=== PATIENT | female | born 1990 | race African-American/Black ===

== ENCOUNTER 2022-06-11 08:13 | Emergency (ER) | payer MEDICAID, OTHER ==
[~2022-06-11] VITALS: Ht 167.6 cm; Wt 100.0 kg
[2022-06-11 08:19] VITALS: BP 140/83
[2022-06-11] MEDS ORDERED: ACETAMINOPHEN 325MG TABLET PO ONE (10:00)
[2022-06-11 10:31] LABS: CLARITY URINE CLOUDY (CLEAR); COLOR URINE YELLOW (YELLOW); KETONES URINE TRACE (NEGATIVE); LEUKOCYTE ESTERASE URINE 1+ (NEGATIVE); NITRITE URINE NEGATIVE (NEGATIVE); OCCULT BLOOD URINE TRACE (NEGATIVE); PH URINE 5.5 (4.5-8.0); PROTEIN URINE TRACE (NEGATIVE); SPECIFIC GRAVITY URINE 1.033 (1.005-1.030); UROBILINOGEN URINE 0.2 E.U./dL (0.2-1.0)
[2022-06-11] MEDS ORDERED: CIPR-263 MT (11:09)
== END 2022-06-11 11:31 | disposition home or self-care (01) ==
LOC: ER 08:13
DX: N39.0 Urinary tract infection, site not specified (principal); N12 Tubulo-interstitial nephritis, not specified as acute or chronic
CPT/HCPCS: 81003; 81025; 99283

== ENCOUNTER 2022-10-17 09:23 | Emergency (ER) | payer MEDICAID, OTHER ==
[~2022-10-17] VITALS: Ht 160 cm; Wt 145.0 kg
[~2022-10-17 09:23] MED LIST: CIPR-263 MT
[2022-10-17 09:34] VITALS: O2SAT 99
[2022-10-17] MEDS ORDERED: IBUPROFEN 600MG TABLET PO ONE (09:45)
[2022-10-17] MEDS ORDERED: IBUP-2029 MT (11:52)
[2022-10-17] MEDS ORDERED: HYDROCODONE/ACETAMINOPHEN 5/325MG TABLET PO ONE (12:00)
[2022-10-17 13:52] VITALS: BP 136/92; PULSE 84; RESP 16; TEMP 98.5
== END 2022-10-17 13:53 | disposition home or self-care (01) ==
LOC: ER 09:23
DX: S82.401A Unspecified fracture of shaft of right fibula, initial encounter for closed fracture (principal); W01.0XXA Fall on same level from slipping, tripping and stumbling without subsequent striking against object, initial encounter; Y93.89 Activity, other specified; Y92.89 Other specified places as the place of occurrence of the external cause; Y99.8 Other external cause status
CPT/HCPCS: 73600; 73620; 29515; 99284; Z7610

== ENCOUNTER 2022-12-03 09:40 | Emergency (ER) | payer MEDICAID, OTHER ==
[~2022-12-03] VITALS: Ht 160 cm; Wt 143.0 kg
[~2022-12-03 09:40] MED LIST changes: +IBUP-2029 MT
[2022-12-03 09:46] VITALS: TEMP 98.7; O2SAT 96
[2022-12-03 11:45] VITALS: BP 134/90; PULSE 114; RESP 16
[2022-12-03] MEDS ORDERED: KETOROLAC 30MG/ML VIAL IM ONE (11:45)
[2022-12-03] MEDS ORDERED: NAPR-1176 MT (12:37)
== END 2022-12-03 12:50 | disposition home or self-care (01) ==
LOC: ER 09:40
DX: S82.401A Unspecified fracture of shaft of right fibula, initial encounter for closed fracture (principal); X58.XXXA Exposure to other specified factors, initial encounter; Y93.89 Activity, other specified; Y92.89 Other specified places as the place of occurrence of the external cause; Y99.8 Other external cause status
CPT/HCPCS: 73610; 96372; 99283; J1885; Z7610

== ENCOUNTER 2023-04-17 17:39 | Emergency (ER) | payer OTHER ==
[~2023-04-17] VITALS: Ht 170.2 cm; Wt 113.0 kg
[~2023-04-17 17:39] MED LIST changes: +NAPR-1176 MT
[2023-04-17 17:49] VITALS: BP 139/84; PULSE 115; RESP 16; TEMP 96.8; O2SAT 96
== END 2023-04-17 23:17 | disposition left against medical advice (07) ==
LOC: ER 17:39
DX: M54.50 Low back pain, unspecified (principal); Z53.21 Procedure and treatment not carried out due to patient leaving prior to being seen by health care provider
CPT/HCPCS: 99281

== ENCOUNTER 2023-12-24 00:34 | Emergency (ER) | payer OTHER ==
[~2023-12-24] VITALS: Ht 165.1 cm; Wt 155.0 kg
[2023-12-24 00:38] VITALS: O2SAT 99
[2023-12-24 00:39] VITALS: BP 140/89; PULSE 131; TEMP 98; O2SAT 97
[2023-12-24 03:03] LABS: BASOPHILS % 0.5 % (0.0-2.0); EOSINOPHILS % 3.7 % (0.0-5.0); HEMATOCRIT. 37.5 % (36.0-48.0); HEMOGLOBIN. 12.3 g/dL (12.0-16.0); LYMPHOCYTES % 32.8 % (20.0-50.0); MEAN CORPUSCULAR HEMOGLOBIN 29.4 pg (28.0-32.0); MEAN CORPUSCULAR HGB CONC 32.9 g/dL (31.0-37.0); MEAN CORPUSCULAR VOLUME 89.4 fL (81.0-99.0); MEAN PLATELET VOLUME 7.3 fl (7.4-10.4); PLATELET 397 x1000/uL (130-400); RED BLOOD CELL COUNT 4.19 mill/uL (4.2-5.4); RED CELL DISTRIBUTION WIDTH 14.7 % (11.6-14.6); WHITE BLOOD COUNT 7.3 x1000/uL (4.5-11.0)
[2023-12-24 03:04] LABS: CHLORIDE 105 mEq/L (98-107); POTASSIUM 3.9 mEq/L (3.5-5.1); SODIUM 138 mEq/L (136-145)
[2023-12-24 03:05] LABS: CARBON DIOXIDE 28 mEq/L (21-32)
[2023-12-24 03:06] LABS: CALCIUM 8.8 mg/dL (8.7-10.4)
[2023-12-24 03:07] LABS: PROTHROMBIN TIME 10.8 sec (9.6-11.0)
[2023-12-24 03:10] LABS: GLUCOSE 108 mg/dL (70-105); UREA NITROGEN BLOOD 10 mg/dL (9-23)
[2023-12-24 03:17] LABS: HCG SCREEN NEGATIVE
[2023-12-24 04:21] LABS: CLARITY URINE CLOUDY (CLEAR); COLOR URINE YELLOW (YELLOW); GLUCOSE URINE NEGATIVE (NEGATIVE); KETONES URINE NEGATIVE (NEGATIVE); LEUKOCYTE ESTERASE URINE NEGATIVE (NEGATIVE); NITRITE URINE NEGATIVE (NEGATIVE); OCCULT BLOOD URINE TRACE (NEGATIVE); PH URINE 6.5 (4.5-8.0); PROTEIN URINE NEGATIVE (NEGATIVE); SPECIFIC GRAVITY URINE 1.028 (1.005-1.030)
[2023-12-24] MEDS ORDERED: IBUP-2030 MT (05:42)
[2023-12-24 05:45] VITALS: RESP 17
[2023-12-24 05:46] LABS: CREATININE 0.8 mg/dL (0.6-1.0)
[2023-12-24 05:53] LABS: SQUAMOUS EPITHELIAL CELL URINE 2+ /lpf (RARE/1+)
[2023-12-24 05:55] LABS: BACTERIA URINE 1+; RBC URINE 0-2 /hpf (0-2); WBC URINE 0-2 /hpf (0-2)
== END 2023-12-24 05:53 | disposition home or self-care (01) ==
LOC: ER 00:50
DX: R10.84 Generalized abdominal pain (principal); F41.9 Anxiety disorder, unspecified; J45.909 Unspecified asthma, uncomplicated; F31.9 Bipolar disorder, unspecified; E11.9 Type 2 diabetes mellitus without complications; F19.90 Other psychoactive substance use, unspecified, uncomplicated
CPT/HCPCS: 36415; 74176; 80048; 81003; 84703; 85025; 99284

== ENCOUNTER 2025-04-01 14:45 | Emergency (ER) | payer OTHER ==
[~2025-04-01] VITALS: Ht 165.1 cm; Wt 152.0 kg
[~2025-04-01 14:45] MED LIST changes: +IBUP-1455 MT; -IBUP-2029 MT; +IBUP-2030 MT
[2025-04-01 14:50] VITALS: O2SAT 97
[2025-04-01 15:48] LABS: BASOPHILS % 0.4 % (0.0-2.0); EOSINOPHILS % 2.4 % (0.0-5.0); HEMATOCRIT. 37.8 % (36.0-48.0); HEMOGLOBIN. 12.4 g/dL (12.0-16.0); LYMPHOCYTES % 35.4 % (20.0-50.0); MEAN PLATELET VOLUME 6.7 fl (7.4-10.4); MONOCYTES % 5.6 % (2.0-8.0); NEUTROPHILS % 56.2 % (40.0-76.0); PLATELET 381 x1000/uL (130-400); RED BLOOD CELL COUNT 4.16 mill/uL (4.2-5.4); RED CELL DISTRIBUTION WIDTH 15.0 % (11.6-14.6)
[2025-04-01 16:05] LABS: CREATININE 0.8 mg/dL (0.6-1.0); TROPONIN I HIGH SENSITIVITY < 4 ng/L (3.0-34); UREA NITROGEN BLOOD 8 mg/dL (9-23)
[2025-04-01 18:26] LABS: TROPONIN I HIGH SENSITIVITY < 4 ng/L (3.0-34)
[2025-04-01] MEDS: IOHEXOL-350 100 ML BOTTLE ONE (19:44)
[2025-04-01 19:51] VITALS: BP 124/89; PULSE 96; RESP 20; TEMP 36.8; O2SAT 96
== END 2025-04-01 19:51 | disposition home or self-care (01) ==
LOC: ER 14:45
DX: R07.9 Chest pain, unspecified (principal); J45.909 Unspecified asthma, uncomplicated; E11.9 Type 2 diabetes mellitus without complications; F41.9 Anxiety disorder, unspecified; F31.9 Bipolar disorder, unspecified; Z79.1 Long term (current) use of non-steroidal anti-inflammatories (NSAID)
CPT/HCPCS: 99285; 71275; 71045; 80048; 81025; 85025; 85379; 84484; 36415; 93005; Q9967